=== PATIENT | male | born 1995 | race Two or more races ===

== ENCOUNTER 2025-01-13 06:10 | Day surgery (SDC) | payer MEDICAID, SELFPAY ==
[2025-01-11 14:54] VITALS: BMI 20.5
--- NOTE | 2025-01-12 11:24 | ESHP_ITS ---
RE: ELVISCARLOS : 1995 DATE OF ADMISSION: 01/13/2025 HISTORY OF PRESENT ILLNESS: A 29-year-old gentleman with 3 children, desiring bilateral vasectomy for family planning. PAST SURGICAL HISTORY: None. ALLERGIES: NONE KNOWN. PAST MEDICAL HISTORY: No history of diabetes or no history of hypertension. PHYSICAL EXAMINATION: HEENT: Normal. NECK: Supple. LUNGS: Clear. CARDIOVASCULAR: Heart sounds are normal. ABDOMEN: Soft. GENITOURINARY: Phallus is normal. Testes are down in scrotum. IMPRESSION: The patient is desiring bilateral vasectomy for family planning. PLAN: Planned procedure, risks, and complications have been discussed with the patient. The patient has understood them and agreed to proceed. DT: 10:13:44 TT: 11:22:00 Ref: [id number] - TID: [id number]
--- NOTE | 2025-01-12 15:14 | SUR.PREOP ---
Pt went to do labs to lab court he got confused. Contacted and asked her to bring labs from lab court.
--- NOTE | 2025-01-12 15:25 | SUR.PREOP ---
Lab court will not have labs ready until 5 days per , please do labs on arrival.
[2025-01-13] VITALS (8 sets, daily range): BP systolic 92–120; BP diastolic 48–88; PULSE 56–82; RESP 13–20; TEMP 36.4–37.1; O2SAT 98–100; BMI 18.6
[2025-01-13] MEDS: RINGERS LACTATED 1000 ML 1,000 ML 20 ML IV (06:50)
--- NOTE | 2025-01-13 07:20 | SUR.PREOP ---
Patient expressed gratitude for prayer before their procedure.
--- NOTE | 2025-01-13 09:18 | SUR.PHASEI ---
0918: Pt. arrived with oral airway in place, vitals stable, breathing unlabored, no signs of distress, dressing to scrotal area CDI, no active bleed noted, report received from Marco KYLE and MD Tiwari.
--- NOTE | 2025-01-13 10:18 | SUR.PHASEII ---
1018: Pt. AAOx4, vitals stable, breathing unlabored, no complaint of pain or nausea, dressing to scrotum CDI, no active bleed noted, pt. tolerated sips of juice well, pt. ambulated to wheelchair with steady gait and no assist, no complications. Gave discharge instructions to the pt. and his ride, both verbalized understanding and had no further questions. Pt. left with all personal belongings.
--- NOTE | 2025-01-13 12:01 | ESOP_ITS ---
RE: ELVISCARLOS : 1995 DATE OF OPERATION: 01/13/2025 PREOPERATIVE DIAGNOSIS: The patient is desiring bilateral vasectomy for family planning. POSTOPERATIVE DIAGNOSIS: The patient is desiring bilateral vasectomy for family planning. PROCEDURE PERFORMED: Bilateral vasectomy. ANESTHESIA: General. INDICATION: The patient is a 29-year-old gentleman who was referred to vt who wishes to have bilateral vasectomy for family planning. Planned procedure, risks, and complications have been discussed with the patient. The patient has understood them and agreed to proceed. DESCRIPTION OF PROCEDURE: After the patient was brought to the operating table under adequate general anesthesia and supine position, parts were prepped and draped in the usual fashion. The right vas deferens was made subcutaneous. A small transverse incision of 0.5 cm was made over the right vas deferens. Dissection was then carried out. A small segment of the vas deferens was selected and two clamps were placed on the vas deferens. The segment between the clamps was excised and was sent for examination. The ends of the vas deferens were fulgurated using electrocautery and were ligated with 3-0 chromic catgut sutures. Complete hemostasis was obtained. The skin wound was closed with interrupted sutures of 3-0 chromic catgut sutures. In a similar fashion, the left-sided vasectomy was done. Local anesthetic was injected at the site of the skin. Sterile dressing was then applied. The patient was then transferred to the recovery room in a satisfactory condition, having tolerated the entire procedure well. Sponge count and needle count at the end of the procedure was found to be correct. Estimated blood loss was approximately 2 mL. DT: 09:26:21 TT: 10:13:00 Ref: [id number] - TID: [id number]
== END 2025-01-13 10:18 | disposition home or self-care (01) ==
PROVIDERS: PCP Family Medicine; Referring Provider Surgery; Visit Provider Surgery
PROC: (CPT 55250; principal; 2025-01-13 08:30)
DX: Z30.2 Encounter for sterilization (principal)
CPT/HCPCS: 55250; 80048; 85025; A4217; A4649; J0690; J0694; J1100; J2405; J2704; J3010; J3490; J7120; L8330; A9270